=== PATIENT | female | born 1960 | race Caucasian/White ===

== ENCOUNTER → 2017-06-19 13:36 | Emergency (ER) | payer OTHER ==
[2017-06-19 14:24] VITALS: BP 117/57
--- NOTE | 2017-06-19 16:12 | ED ---
Shade Estes Angela, scribed for Yeyo Encinas MD on 06/19/17 at 1410 . Shortness of Breath - HPI Summary HPI Summary: 57 y/o female presents to the ED BIBA accompanied by her daughter with afib, SOB , and diaphoresis. Pt reports she was at work today at the onset of her symptoms and was running from one place to another. She notes currently mild chest pain. Pt has taken 120 mg of cartizem which alleviated her symptoms. Pt states that she is feeling better now and would like to be discharged home. - History of Current Complaint Hx Obtained From: Patient, Family/Carton Counter Feeder - Daughter Onset/Duration: Sudden Onset, Resolved Associated Signs & Symptoms: Chest Pain Unrelated to Cough, Diaphoresis - Allergy/Home Medications Allergies/Adverse Reactions: Allergies Allergy/AdvReac Type Severity Reaction Status Date / Time Cephalexin [From Keflex] Allergy Intermediate Dizziness, Verified 11/25/16 08:49 nausea Iodinated Diagnostic Agents Allergy Intermediate cardiac Verified 11/25/16 08:49 changes, nausea, dizziness radiology contrast AdvReac Intermediate Nausea And Uncoded 10/02/16 09:50 Vomiting PMH/Surg Hx/FS Hx/Imm Hx Endocrine/Hematology History: Denies: Hx Diabetes Cardiovascular History: Reports: Hx Angina, Hx Coronary Artery Disease, Hx Hypercholesterolemia, Hx Hypertension, Hx Myocardial Infarction, Other Cardiovascular Problems/Disorders - AFIB 12/25 CONVERTED ON OWN. POSS REACTION TO IV CONTRAST Denies: Hx Congestive Heart Failure, Hx Pacemaker/ICD Respiratory History: Reports: Hx Lung Cancer, Hx Sleep Apnea, Other Respiratory Problems/Disorders - HX RIGHT LUNG CA; LOWER LOBECTOMY 2012 GI History: Reports: Hx Gastroesophageal Reflux Disease, Other GI Disorders - GERD History: Reports: Hx Renal Disease, Other Problems/Disorders - hx of protein and blood in urine Musculoskeletal History: Reports: Hx Arthritis - RIGHT KNEE, Hx Back Problems - 1992 ruptured disc, Hx Orthopedic Injury - HX multiple surgeries (right) knee [id number], Other Musculoskeletal History - osteo-arthritis knees, back Sensory History: Denies: Hx Contacts or Glasses, Hx Hearing Aid Opthamlomology History: Denies: Hx Contacts or Glasses Neurological History: Reports: Other Neuro Impairments/Disorders - neuropathy bilateral feet Psychiatric History: Reports: Hx Anxiety - secondary to Cancer dx, Hx Depression Denies: Hx Panic Disorder - Cancer History Cancer Type, Location and Year: Right lung cancer Hx Chemotherapy: Yes Hx Radiation Therapy: No Hx Palliative Cancer Treatment: Yes - Surgical History Surgery Procedure, Year, and Place: LAMINECTOMY 20 YRS AGO. RIGHT KNEE SCOPING. RIGHT THORACOTOMY, LOWER LOBECTOMY 2013 [facility]. POWERPORT INSERTION 2013 [facility]. RIGHT SHOULDER 2000 Hx Anesthesia Reactions: No - Immunization History Date of Tetanus Vaccine: WITHIN 10 YEARS Date of Influenza Vaccine: 2013 Infectious Disease History: Denies: Hx Clostridium Difficile, Hx Hepatitis, Hx Human Immunodeficiency Virus (HIV), Hx of Known/Suspected MRSA, Hx Shingles, Hx Tuberculosis, Hx Known/ Suspected VRE, Hx Known/Suspected VRSA, History Other Infectious Disease - Family History Known Family History: Positive: Hypertension - Social History Alcohol Use: Occasionally Alcohol Amount: 2-3/week Substance Use Type: Reports: None Smoking Status (MU): Former Smoker Type: Cigarettes Length of Time of Smoking/Using Tobacco: 25 YRS Have You Smoked in the Last Year: No Review of Systems Positive: Skin Diaphoresis. Negative: Fever Positive: Palpitations - Fast heart beating, Chest Pain - Mild Positive: Shortness Of Breath - Now resolved All Other Systems Reviewed And Are Negative: Yes Physical Exam - Summary Physical Exam Summary: General: well-appearing, no pain distress Skin: warm, color reflects adequate perfusion, dry Head: normal Eyes: EOMI, LUCINA ENT: normal Neck: supple, nontender Respiratory: CTA, breath sounds present Cardiovascular: RRR Abdomen: soft, nontender Bowel: present Musculoskeletal: normal, strength/ROM intact Neurological: normal, sensory/motor intact, A&O x3 Psychological: affect/mood appropriate Triage Information Reviewed: Yes Vital Signs On Initial Exam: Initial Vitals Temp Pulse Resp BP Pulse Ox 98.0 F 100 16 117/57 96 06/19/17 13:40 06/19/17 13:40 06/19/17 13:40 06/19/17 13:40 06/19/17 13:40 Vital Signs Reviewed: Yes Diagnostics - Vital Signs Vital Signs Temp Pulse Resp BP Pulse Ox 06/19/17 13:40 98.0 F 100 16 117/57 96 - Laboratory Lab Statement: Any lab studies that have been ordered have been reviewed, and results considered in the medical decision making process. Course/Dx - Course Course Of Treatment: PATIENT ARRIVED IN ED ON STRETCHER BY EMS. WHILE STILL ON THE STRETCHER, THE PATIENT WANTED TO LEAVE AND UNDERGO NO EVALUATION OR TREATMENT. I EVALUATED HER ON THE STRETCHER AND ENCOURAGED HER TO STAY FOR EVALUATION AND TREATMENT. HE DAUGHTER WAS PRESENT DURING THIS CONVERSATION. PATIENT'S HR WAS 84BPM AND REGULAR. THE EMS EKG WAS NSR WITHOUT ECTOPY OR ST CHANGES. PATIENT STATES SHE HAS A HX OF AFIB AND THIS IS WHAT HAPPENED TODAY. SHE HAD CHEST PAIN DURING THE TACHYCARDIA WHICH WENT AWAY AFTER THE TACHYCARDIA RESOLVED. THE PATIENT AND HER DAUGHTER SIGNED THE AMA FORM. - Diagnoses Provider Diagnoses: Tachycardia, Chest pain, Left against medical advice Discharge - Discharge Plan Condition: Stable Disposition: AGAINST MEDICAL ADVICE Referrals: Jade Rodriguez NP [Primary Care Provider] - The documentation as recorded by the Shade griffith Angela accurately reflects the service I personally performed and the decisions made by me, Yeyo Encinas MD.
== END | disposition left against medical advice (07) ==
LOC: ED 13:36
DX: R00.0 Tachycardia, unspecified (principal); R07.9 Chest pain, unspecified; R00.2 Palpitations; Z87.891 Personal history of nicotine dependence; Z53.21 Procedure and treatment not carried out due to patient leaving prior to being seen by health care provider
CPT/HCPCS: 99282

== ENCOUNTER 2018-10-23 06:42 | Day surgery (SDC) | payer OTHER ==
--- NOTE | 2018-10-19 02:56 | HP ---
PREOPERATIVE HISTORY AND PHYSICAL EXAM: DATE OF SURGERY/ADMISSION: 10/23/18. DATE OF OFFICE VISIT/ENCOUNTER: 10/07/18. ATTENDING SURGEON: Radha Allen M.D.* (DICTATED BY LO GENTILE) RAG WASHER: Dr. Sood. PROCEDURE: Left wrist carpal tunnel release. CHIEF COMPLAINT: Numbness and tingling in left hand. HISTORY OF PRESENT ILLNESS: This is a 58-year-old female, who complains of numbness and tingling in her bilateral hands, worse on the left than the right. She had nerve conduction studies done at the end of August 2018, and these were consistent with moderately severe bilateral median neuropathy at the wrist. The patient has not had any treatment for this problem. She denies any injury. Symptoms had been ongoing for several months. She has symptoms that awaken her at night and also during the day. She is interested in pursuing surgical intervention for the left wrist at this time. The patient is on Xarelto due to history of atrial fibrillation when she was undergoing chemotherapy for lung cancer. We will get cardiac clearance from her urgent care, Dr. Sood prior to surgery. The patient is on oxycodone 10 mg b.i.d. or t.i.d. for peripheral neuropathy. This is prescribed by Carrington Rios. PAST MEDICAL HISTORY: 1. Osteoarthritis. 2. Hyperlipidemia. 3. Hypertension. 4. Sleep apnea with CPAP. 5. Atrial fibrillation. 6. GERD. 7. Anxiety/depression. 8. History of lung cancer with chemotherapy 5 years ago. 9. History of DVT during chemotherapy 5 years ago. 10. Peripheral neuropathy. PAST SURGICAL HISTORY: 1. Right total knee arthroplasty. 2. Left knee arthroscopy. 3. Lumbar spine surgery in 1992. 4. Right lung lobectomy. 5. Right rotator cuff repair. 6. Cardiac catheterization. CURRENT MEDICATIONS: 1. Avapro 300 mg daily. 2. Bupropion HCL ER 150 mg daily. 3. Calcium 500 mg daily. 4. Cardizem 30 mg twice a day. 5. Cardizem CD 180 mg daily. 6. Magnesium 250 mg daily. 7. Pantoprazole sodium 20 mg twice a day. 8. Vitamin D3 complete once daily. 9. Xarelto 20 mg daily. 10. Zofran 4 mg 1 tablet 3 times a day p.r.n. nausea. ALLERGIES: IODINE CONTRAST, reactions unknown. KEFLEX, causes nausea and vomiting. The patient does not take NONSTEROIDAL ANTIINFLAMMATORY DRUGS secondary to being on Xarelto. FAMILY MEDICAL HISTORY: Noncontributory. SOCIAL HISTORY: The patient is a teacher in [place]. She is a former smoker. She quit 5-1/2 years ago, prior to that she smoked a pack per day for 20 years. She denies recreational drug use. She drinks alcohol on occasion. REVIEW OF SYSTEMS: Negative for general, cephalic, cardiovascular, respiratory , GI, , other musculoskeletal, integumentary, endocrine, neurologic, hematologic symptoms. Infectious disease is negative for MRSA, hepatitis C, HIV. PHYSICAL EXAMINATION GENERAL: Well-developed, well-nourished 58-year-old female, in no acute distress. VITAL SIGNS: Height 5 feet 4 inches, weight 221 pounds, blood pressure 126/86, pulse rate 82. HEENT: Normocephalic, atraumatic. Pupils are equal, round, and reactive to light and accommodation. Extraocular movements are intact. NECK: Supple. No palpable lymph nodes. Throat is clear. PULMONARY: Lungs are clear to auscultation bilaterally. No wheezes, rales or rhonchi. CARDIOVASCULAR: Regular rate and rhythm. S1, S2. No murmurs, rubs or gallops. No edema. ABDOMEN: Positive bowel sounds, soft, nontender. NEUROLOGIC: Alert and oriented x3. Cranial nerves II through XII are intact. MUSCULOSKELETAL: On exam of the left hand, there is no thenar wasting, but she has weakness with thumb abduction. She can flex and extend the fingers well. She has a positive Tinel's sign at the median nerve at the wrist and positive median nerve compression test. Wrist motion is normal. IMAGING DATA: EMG nerve conduction study shows bilateral severe median neuropathy at the wrist. PLAN/RECOMMENDATIONS: The patient is scheduled to undergo a left wrist carpal tunnel release with Dr. Allen on 10/23/18. She will return to the office 10 days postop for followup and suture removal. She has oxycodone 10 mg at home as prescribed by Carrington Rios NP, and she will use that for postoperative pain management. We will get cardiac clearance prior to proceeding the surgery. LO GENTILE [id number]/[facility] #: [id number] [facility]IC[facility]
[~2018-10-23 06:42] MED LIST: Buffered Lidocaine 0.9% SYRIN* 5 ML/SYR SYRINGE INTRADERM ONE; Lactated Ringers 1000 ML Bag* 1,000 ML IV SCH
[2018-10-23] MEDS ORDERED: Lidocaine 1% INJ* 10 MG/ML 30 ML SDV ONE (07:02)
[2018-10-23] MEDS ORDERED: Naloxone* 0.4 MG/ML 1 ML VIAL IV PRN (07:48)
[2018-10-23] MEDS ORDERED: Acetaminophen TAB* 325 MG PO PRN (07:48)
[2018-10-23] MEDS ORDERED: Ondansetron INJ* 2 MG/ML VIAL IV PRN (07:48)
[2018-10-23] MEDS ORDERED: oxyCODONE/Acetamin 5/325 MG* TAB PO PRN (07:48)
[2018-10-23] MEDS ORDERED: fentaNYL* 50 MCG/ML 2 ML VIAL (100 MCG VIAL) ONE (07:51)
[2018-10-23] MEDS ORDERED: Midazolam* 1 MG/ML 2 ML VIAL (2 MG) ONE (07:51)
[2018-10-23] MEDS ORDERED: Famotidine IV* 10 MG/ML 2 ML (20 mg) ONE (08:10)
[2018-10-23] MEDS ORDERED: Ketorolac INJ* 30 MG/ML 1 ML VIAL ONE (08:18)
[2018-10-23] MEDS ORDERED: Lidocaine 2% PF * 5 ML VIAL ONE (08:18)
[2018-10-23] MEDS ORDERED: Propofol* 10 MG/ML 20 ML BTL ONE (08:18)
[2018-10-23 09:20] VITALS: BP 140/84
--- NOTE | 2018-10-24 06:16 | OP ---
DATE OF OPERATION: 10/23/18 [facility] DATE OF : 64 SURGEON: Radha Allen MD BUREAU DIRECTOR: LO Donaldson ANESTHESIA: Local MAC. PRE-OP DIAGNOSIS: Left carpal tunnel syndrome. POST-OP DIAGNOSIS: Left carpal tunnel syndrome. OPERATIVE PROCEDURE: Left carpal tunnel release. ESTIMATED BLOOD LOSS: Zero. TOURNIQUET TIME: About 10 minutes. INDICATION FOR PROCEDURE: [place] is a 58-year-old female with numbness and tingling in the median nerve distribution of her left hand. She presents for left carpal tunnel release. DESCRIPTION OF PROCEDURE: The patient was brought to the operating room, was given a sedation anesthetic and a local infiltration with 15 cc of 1% plain lidocaine in the palm of her left hand. The skin of her left hand and forearm was prepped and draped in the usual sterile fashion. The hand and forearm were exsanguinated and the tourniquet elevated to 250 mmHg. A longitudinal incision was made in the palm in line with the ring finger. We dissected sharply through the subcutaneous tissue down to the transverse carpal ligament. The ligament was divided sharply with a knife and then more proximally with the scissors. The nerve was dissected free from the surrounding tissue and there was an area of significant compression at the mid portion of the ligament. The wound was irrigated. Cautery was used to gain hemostasis, although there was only one tiny blood vessel. This was done because the patient is on Xarelto. Skin edges were reapproximated with 4-0 nylon suture. The wound was dressed with Xeroform, 4x4, Webril and an Aldo wrap. The patient tolerated the procedure well and was brought to the recovery room in good condition. [id number]/[facility] #: [id number] [facility]ENTERAmado
== END 2018-10-23 09:22 | disposition home or self-care (01) ==
LOC: OREAST 06:42
PROVIDERS: ATTEND Orthopaedic Surgery
DX: G56.02 Carpal tunnel syndrome, left upper limb (principal); I48.91 Unspecified atrial fibrillation; M19.90 Unspecified osteoarthritis, unspecified site; Z79.01 Long term (current) use of anticoagulants; Z87.891 Personal history of nicotine dependence; E78.5 Hyperlipidemia, unspecified; I10 Essential (primary) hypertension; G47.33 Obstructive sleep apnea (adult) (pediatric); F41.8 Other specified anxiety disorders; Z86.718 Personal history of other venous thrombosis and embolism; Z85.118 Personal history of other malignant neoplasm of bronchus and lung; G62.9 Polyneuropathy, unspecified
CPT/HCPCS: J1885; J2250; J2704; J3010

== ENCOUNTER 2018-11-27 10:03 | Day surgery (SDC) | payer OTHER ==
--- NOTE | 2018-11-22 16:13 | HP ---
PREOPERATIVE HISTORY AND PHYSICAL: DATE OF ADMISSION/SURGERY: 11/27/18 DATE OF OFFICE VISIT/ENCOUNTER: 11/18/18 ATTENDING SURGEON: Radha Allen MD * (DICTATED BY LO GENTILE) SLICING MACHINE TENDER: Dr. Sood. PROCEDURE: Right wrist carpal tunnel release. CHIEF COMPLAINT: Numbness and tingling, right hand. HISTORY OF PRESENT ILLNESS: This is a 58-year-old female, who complains of numbness and tingling in her right hand, ongoing for quite some time. She had nerve conduction study done at the end of August 2018, which showed moderately severe bilateral median nerve neuropathy at the wrist. She recently underwent a left carpal tunnel release and has done quite well with that. She is interested in pursuing the same procedure for her right wrist. The patient is on Xarelto due to history of atrial fibrillation and she will remain on that perioperatively. She got cardiac clearance from her aviation maintenance instructor, Dr. Sood , in October 2018 prior to undergoing her left carpal tunnel release. The patient is on oxycodone 10 mg b.i.d. or t.i.d. for peripheral neuropathy. This is prescribed by Carrington Rios NP. PAST MEDICAL HISTORY: 1. Osteoarthritis. 2. Hyperlipidemia. 3. Hypertension. 4. Sleep apnea with CPAP. 5. Atrial fibrillation. 6. GERD. 7. Anxiety/depression. 8. History of lung cancer with chemotherapy 5 years ago. 9. History of DVT during chemotherapy 5 years ago. 10. Peripheral neuropathy. PAST SURGICAL HISTORY: 1. Left carpal tunnel release. 2. Right knee total knee arthroplasty. 3. Left knee arthroscopy. 4. Lumbar spine surgery in 1992. 5. Right lung lobectomy. 6. Right rotator cuff repair. 7. Cardiac catheterization. CURRENT MEDICATIONS: 1. Avapro 300 mg daily. 2. Bupropion HCl ER 150 mg daily. 3. Calcium 500 mg daily. 4. Cardizem 30 mg twice a day. 5. Cardizem CD 180 mg daily. 6. Magnesium 250 mg daily. 7. Pantoprazole sodium 20 mg twice a day. 8. Vitamin D3 Complete once daily. 9. Xarelto 20 mg daily. 10. Zofran 4 mg 1 tab 3 times a day p.r.n. nausea. ALLERGIES: IODINE CONTRAST, reactions unknown; KEFLEX, causes nausea and vomiting. The patient does not take nonsteroidal anti-inflammatory drugs secondary to being on Xarelto. FAMILY MEDICAL HISTORY: Noncontributory. SOCIAL HISTORY: The patient is a teacher in [place]. She is a former smoker. She quit approximately 6 years ago. Prior to that, she smoked a pack per day for 20 years. She denies any recreational drug use. She drinks alcohol on occasion. REVIEW OF SYSTEMS: Negative for general, cephalic, cardiovascular, respiratory , GI, , other musculoskeletal, integumentary, endocrine, neurologic, and hematologic symptoms. Infectious Diseases: Negative for MRSA, hepatitis C, HIV. PHYSICAL EXAMINATION GENERAL: Well-developed, well-nourished 58-year-old female, in no acute distress. VITAL SIGNS: Height 5 feet 4 inches, weight 222 pounds. Pulse rate 84, blood pressure 144/82. HEENT: Normocephalic, atraumatic. Pupils are equal, round, and reactive to light and accommodation. Extraocular movements are intact. Throat is clear. NECK: Supple. No palpable lymph nodes. PULMONARY: Lungs are clear to auscultation bilaterally. No wheezes, rales, or rhonchi. CARDIOVASCULAR: Regular rate and rhythm. S1, S2. No murmurs, rubs, or gallops. No edema. ABDOMEN: Positive bowel sounds. Soft, nontender. NEUROLOGICAL: Alert and oriented x3. Cranial nerves II through XII are intact. MUSCULOSKELETAL: On exam of her right hand, there is no thenar wasting, but she has weakness with thumb abduction. She has good motion in her fingers. She has a positive Tinel's sign at the median nerve at the wrist and a positive median nerve compression test. Wrist motion is normal. DIAGNOSTIC STUDIES: EMG nerve conduction study shows moderately severe carpal tunnel syndrome on the right. IMPRESSION: Right carpal tunnel syndrome. PLAN: The patient is scheduled to undergo a right wrist carpal tunnel release with Dr. Allen on . She will return to the office 10 days postop for followup and suture removal. She has oxycodone 10 mg at home as prescribed by Carrington Rios NP, and she will use that for postoperative pain management. LO GENTILE [id number]/[facility] #: [id number] [facility]
[~2018-11-27 10:03] MED LIST changes: -Buffered Lidocaine 0.9% SYRIN* 5 ML/SYR SYRINGE INTRADERM ONE; +Buffered Lidocaine 1% SYRIN* 1 ML/SYRINGE INTRADERM ONE
[2018-11-27] MEDS ORDERED: Lidocaine 1% INJ* 10 MG/ML 30 ML SDV ONE (10:07)
[2018-11-27] MEDS ORDERED: Famotidine IV* 10 MG/ML 2 ML (20 mg) ONE (11:30)
[2018-11-27] MEDS ORDERED: Famotidine IV* 10 MG/ML 2 ML (20 mg) IV SLOW PU ONE (11:31)
[2018-11-27] MEDS ORDERED: Propofol* 10 MG/ML 20 ML BTL ONE ×2 (11:32→11:51)
[2018-11-27] MEDS ORDERED: fentaNYL* 50 MCG/ML 2 ML VIAL (100 MCG VIAL) ONE (11:32)
[2018-11-27] MEDS ORDERED: Lidocaine 2% PF * 5 ML VIAL ONE (11:32)
[2018-11-27 12:11] VITALS: BP 123/81
[2018-11-27] MEDS ORDERED: Naloxone* 0.4 MG/ML 1 ML VIAL IV PRN (12:41)
--- NOTE | 2018-11-27 21:00 | OP ---
DATE OF OPERATION: 11/27/18 [facility] DATE OF : 64 SURGEON: Radha Allen MD WEIGHER OPERATOR: LO Donaldson ANESTHESIA: Local MAC. PRE-OP DIAGNOSIS: Right carpal tunnel syndrome. POST-OP DIAGNOSIS: Right carpal tunnel syndrome. OPERATIVE PROCEDURE: Right carpal tunnel release. INDICATIONS FOR PROCEDURE: [place] is a 58-year-old woman with numbness and tingling in the median nerve distribution of her right hand. She presents for right carpal tunnel release. ESTIMATED BLOOD LOSS: Zero. TOURNIQUET TIME: About 10 minutes. DESCRIPTION OF PROCEDURE: The patient was brought to the operating room, was given a sedation anesthetic and a local infiltration of 10 cc of 1% plain lidocaine in the palm of her right hand. The skin of her right hand and forearm was prepped and draped in the usual sterile fashion. The hand and forearm were exsanguinated and the tourniquet elevated to 250 mmHg. A longitudinal incision was made in the palm in line with the ring finger. We dissected through the subcutaneous tissue down to the transverse carpal ligament. The ligament was divided sharply with a knife and then more proximally with the scissors. The nerve was dissected free from the surrounding tissue and there was an area of moderate compression at the mid portion of the ligament. The wound was irrigated and the skin edges were reapproximated with 4-0 nylon suture. The wound was dressed with Xeroform, 4x4 , Webril, and an Aldo wrap. The patient tolerated the procedure well and was brought to the recovery room in good condition. [id number]/[facility] #: [id number] [facility]USAmado
== END 2018-11-27 11:25 | disposition home or self-care (01) ==
LOC: OREAST 10:03
PROVIDERS: ATTEND Orthopaedic Surgery
DX: G56.01 Carpal tunnel syndrome, right upper limb (principal); G47.33 Obstructive sleep apnea (adult) (pediatric); I25.10 Atherosclerotic heart disease of native coronary artery without angina pectoris; Z86.711 Personal history of pulmonary embolism; Z79.01 Long term (current) use of anticoagulants; Z86.718 Personal history of other venous thrombosis and embolism; K21.9 Gastro-esophageal reflux disease without esophagitis; I10 Essential (primary) hypertension; M19.90 Unspecified osteoarthritis, unspecified site; E78.5 Hyperlipidemia, unspecified; I48.91 Unspecified atrial fibrillation; F41.8 Other specified anxiety disorders; Z87.891 Personal history of nicotine dependence
CPT/HCPCS: J2704; J3010

== ENCOUNTER 2019-01-13 13:28 | Emergency (ER) | payer OTHER ==
--- NOTE | 2019-01-13 14:12 | ED ---
GI/ HPI - HPI Summary HPI Summary: Patient is a 58 y/o female who presents to the ED c/o constipation. Shes had the symptoms for the past 2 weeks but they have worsened in the past 3 days. Patient c/o cramping abdominal pain, N/V, low-grade fever, and constipation. Her last BM was 2 days ago but was scant and abnormal. Patient also c/o blood and mucus in her stool beginning yesterday. She denies any dysuria or hematuria. Her current pain is rated a 4/10 in severity. Patient saw her PCP yesterday who advised a stool softener, but it did not provide relief. PMSHx GERD, HTN, tubal ligation. - History of Current Complaint Chief Complaint: EDAbdPain Time Seen by Provider: 01/13/19 13:43 Stated Complaint: INTESTINAL CRAMPS AND PAIN IN LEFT SIDE PER PT Hx Obtained From: Patient Onset/Duration: Started Weeks Ago - 2, Worse Since Timing: Constant Current Severity: Moderate Pain Intensity: 4 Location of Pain: Diffuse Pain Characteristics: Cramping Associated Signs and Symptoms: Positive: Nausea, Vomiting, Constipation, Blood w /Stool, Fever, Abdominal Pain. Negative: Hematuria, Dysuria Aggravating Factor(s): Nothing Alleviating Factor(s): Nothing - Additional Pertinent History Primary Care Physician: [id number] - Allergy/Home Medications Allergies/Adverse Reactions: Allergies Allergy/AdvReac Type Severity Reaction Status Date / Time cephalexin [From Keflex] Allergy Intermediate Dizziness, Verified 01/13/19 14:13 nausea with vomiting Iodinated Contrast- Oral and Allergy Intermediate See Comment Verified 01/13/19 14:13 IV Dye PMH/Surg Hx/FS Hx/Imm Hx Endocrine/Hematology History: Denies: Hx Diabetes Cardiovascular History: Reports: Hx Angina, Hx Coronary Artery Disease, Hx Hypercholesterolemia, Hx Hypertension, Hx Myocardial Infarction Denies: Hx Congestive Heart Failure, Hx Pacemaker/ICD, Hx Rheumatic Fever, Hx Valvular Heart Disease, Other Cardiovascular Problems/Disorders Respiratory History: Reports: Hx Lung Cancer, Hx Pulmonary Embolism - Leg when had chemo 5.5 years ago, Hx Sleep Apnea, Other Respiratory Problems/Disorders - Hx of smoking Denies: Hx Pulmonary Edema GI History: Reports: Hx Gastroesophageal Reflux Disease Denies: Other GI Disorders History: Reports: Hx Renal Disease Denies: Other Problems/Disorders Musculoskeletal History: Reports: Hx Arthritis - "Everywhere", Hx Back Problems - 1992 ruptured disc, Hx Orthopedic Injury - HX multiple surgeries (right) knee [id number] Denies: Hx Osteoporosis, Other Musculoskeletal History Sensory History: Denies: Hx Contacts or Glasses, Hx Hearing Aid Opthamlomology History: Denies: Hx Contacts or Glasses Neurological History: Reports: Hx Nerve Disease - neuropathy bilateral feet Denies: Other Neuro Impairments/Disorders Psychiatric History: Reports: Hx Anxiety - secondary to Cancer dx, Hx Depression Denies: Hx Panic Disorder - Cancer History Cancer Type, Location and Year: Right lung cancer Hx Chemotherapy: Yes - Right lung -lower right lobectomy Hx Radiation Therapy: No Hx Palliative Cancer Treatment: Yes - Surgical History Surgery Procedure, Year, and Place: LAMINECTOMY 20 YRS AGO. RIGHT KNEE SCOPING. RIGHT THORACOTOMY, LOWER LOBECTOMY 2012 [facility]. POWERPORT INSERTION 2012 [facility]. RIGHT SHOULDER 2000. Left Carpal Tunnel Release 2017 Hx Anesthesia Reactions: No - Immunization History Date of Tetanus Vaccine: WITHIN 10 YEARS Date of Influenza Vaccine: 2013 Immunizations Up to Date: Yes Infectious Disease History: No Infectious Disease History: Reports: Traveled Outside the [place] in Last 30 Days - DR Madden: Hx Clostridium Difficile, Hx Hepatitis, Hx Human Immunodeficiency Virus (HIV), Hx of Known/Suspected MRSA, Hx Shingles, Hx Tuberculosis, Hx Known/ Suspected VRE, Hx Known/Suspected VRSA, History Other Infectious Disease - Family History Known Family History: Positive: Hypertension - Social History Alcohol Use: Occasionally Alcohol Amount: 2-3/week Hx Substance Use: No Substance Use Type: Reports: None Hx Tobacco Use: Yes Smoking Status (MU): Former Smoker Type: Cigarettes Length of Time of Smoking/Using Tobacco: 25 YRS Have You Smoked in the Last Year: No Review of Systems Positive: Fever Positive: Abdominal Pain, Vomiting, Nausea, Other - constipation, blood/mucus in stool Negative: dysuria, hematuria All Other Systems Reviewed And Are Negative: Yes Physical Exam - Summary Physical Exam Summary: Appearance: Well appearing, no pain distress Skin: warm, dry, reflects adequate perfusion Head/face: normal Eyes: EOMI, LUCINA ENT: mucous membranes moist Neck: supple, non-tender Respiratory: CTA, breath sounds present Cardiovascular: RRR, pulses symmetrical Abdomen: non-tender, soft Bowel Sounds: present Musculoskeletal: normal, strength/ROM intact Neuro: normal, sensory motor intact, A&Ox3 Rectal: small amount of soft stool in the rectal vault Triage Information Reviewed: Yes Vital Signs On Initial Exam: Initial Vitals Temp Pulse Resp BP Pulse Ox 98.9 F 89 16 156/100 94 01/13/19 13:38 01/13/19 13:38 01/13/19 13:38 01/13/19 13:38 01/13/19 13:38 Vital Signs Reviewed: Yes Diagnostics - Vital Signs Vital Signs Temp Pulse Resp BP Pulse Ox 01/13/19 13:38 98.9 F 89 16 156/100 94 - Laboratory Result Diagrams: 01/13/19 15:00 01/13/19 15:00 Lab Statement: Any lab studies that have been ordered have been reviewed, and results considered in the medical decision making process. - CT CT A/P CT Interpretation Completed By: Radiologist Summary of CT Findings: Long segment mural thickening at the sigmoid colon new compared with the remote prior exam is nonspecific. Consider colitis as well as infiltrative tumor including typical adenocarcinoma as well as lymphoma. While there is mild diverticulosis of the affected segment no specific inflamed diverticula is visible on the current exam to favor diverticulitis. Negative for lymphadenopathy. Negative for obstructive uropathy. Benign LEFT adrenal gland lipid rich adenoma. ED physician reviewed radiology report. Re-Evaluation - Re-Evaluation First Eval Re-Evaluation Time: 14:56 Change: Unchanged Comment: Pt is now having a bowel movement with the enema, but she has sharp abdominal pain. Second Eval Re-Evaluation Time: 16:00 Change: Improved Comment: Pt feels better. GIGU Course/Dx - Course Course Of Treatment: Nurse's notes reviewed. Patient presents with dull left- sided abdominal pain and constipation for several days. She is given an enema with some relief. Her discomfort persisted. She has slight elevation in WBC without elevation in CRP. A CT scan reveals some sigmoid colitis. She had a negative colonoscopy approximately 18 months ago. There was concern for follow- up colonoscopy given the possibility of obstructing lesion. She will follow up closely with her primary care physician, is started on Avelox. They will reevaluate her for need of colonoscopy. - Diagnoses Differential Diagnoses - Female: Other - Acute constipation, diverticulitis, colitis, renal colic, pyelonephritis Provider Diagnoses: Colitis, Constipation Discharge - Sign-Out/Discharge Documenting (check all that apply): Patient Departure - Discharge Patient Received Moderate/Deep Sedation with Procedure: No - Discharge Plan Condition: Improved Disposition: HOME Prescriptions: Hyoscyamine Sulfate [Levsin] 0.125 mg PO Q4H PRN #30 tablet PRN Reason: abdominal cramping Moxifloxacin HCl [Avelox] 400 mg PO DAILY #7 tablet Polyethylene Glycol 3350 BTL* [Miralax] 17 g PO TID PRN #1 btl PRN Reason: Constipation Patient Education Materials: Colitis (ED) Forms: *Work Release Referrals: Margo Hammer MD [Medical Doctor] - Carrington Rios HAMMER SMITH [Primary Care Provider] - Additional Instructions: It is very important you have follow-up colonoscopy following this presentation today. He will be on antibiotics for one week. Follow-up with her primary care physician and call today to schedule an appointment for follow-up with GI for colonoscopy. Return with fever, vomiting, increased pain, worse or other concerns. Tylenol for baseline pain. - Billing Disposition and Condition Condition: IMPROVED Disposition: Home - Attestation Statements Document Initiated by Go: Yes Documenting Scribe: Amy Srivastava Provider For Whom Go is Documenting (Include Credential): Kane Conklin MD Scribe Attestation: Amy Estes scribed for Kane Conklin MD on 01/13/19 at 1703. Scribe Documentation Reviewed: Yes Provider Attestation: The documentation as recorded by the Amy griffith accurately reflects the service I personally performed and the decisions made by me, Kane Conklin MD Status of Scribe Document: Viewed
[2019-01-13] MEDS ORDERED: Ketorolac INJ* 30 MG/ML 1 ML VIAL IV PUSH ONE (14:58)
[2019-01-13 15:18] LABS: ABS Basophils 0.1 10^3/ul (0-0.2); ABS Eosinophils 0.1 10^3/ul (0-0.6); ABS Lymphocytes 2.9 10^3/ul (1.0-4.8); ABS Monocytes 0.7 10^3/ul (0-0.8); ABS Neutrophils 8.7 10^3/ul (1.5-7.7); ABS Nucleated RBC 0 10^3/ul; Eosinophil % 0.6 %; Hematocrit 45 % (35-47); Hemoglobin 15.2 g/dl (12.0-16.0); Lymphocyte % 23.4 %; Mean Corpuscular HGB Conc 34 g/dl (31-36); Mean Corpuscular Hemoglobin 31 pg (27-31); Mean Corpuscular Volume 91 fL (80-97); Mean Platelet Volume 9.5 fL (7.4-10.4); Nucleated Red Blood Cells % 0.1; Platelet Count 332 10^3/ul (150-450); Red Blood Count 4.93 10^6/ul (4.00-5.40); Red Cell Distribution Width 14 % (10.5-15); White Blood Count 12.4 10^3/ul (3.5-10.8)
[2019-01-13 15:36] LABS: Albumin 4.2 g/dL (3.2-5.2); Albumin/Globulin Ratio 1.2 (1-3); BUN/Creatinine Ratio 17.4 (8-20); C Reactive Protein 6.31 mg/L (<8.01); Calcium 9.8 mg/dL (8.6-10.3); EGFR African American 106.5 (>60); Globulin 3.6 g/dL (2-4); Potassium 3.8 mmol/L (3.5-5.0); Total Bilirubin 0.3 mg/dL (0.2-1.0); Total Protein 7.8 g/dL (6.4-8.9)
[2019-01-13 17:00] VITALS: BP 136/82
== END 2019-01-13 17:00 | disposition home or self-care (01) ==
LOC: ED 13:28
DX: K52.9 Noninfective gastroenteritis and colitis, unspecified (principal); K59.00 Constipation, unspecified; Z87.891 Personal history of nicotine dependence; I25.10 Atherosclerotic heart disease of native coronary artery without angina pectoris; E78.00 Pure hypercholesterolemia, unspecified; I10 Essential (primary) hypertension; Z85.118 Personal history of other malignant neoplasm of bronchus and lung; Z86.711 Personal history of pulmonary embolism; K21.9 Gastro-esophageal reflux disease without esophagitis
CPT/HCPCS: 36415; 74176; 80053; 83605; 83690; 85025; 86140; 96374; 99283; J1885